=== PATIENT | male | born 1945 | race Caucasian/White ===

== ENCOUNTER 2021-01-25 08:04 | Observation (INO) | payer OTHER, MEDICARE ==
[~2021-01-25] VITALS: Ht 172.7 cm; Wt 68.0 kg
--- NOTE | ~2021-01-25 | O ---
[facility] [place] [address] OPERATIVE REPORT Name: ARUN JOHNSON Room #: 440-P [facility] M.R.#: [id number] Admission: 01/25/21 Attend Phys: Carrington Watkins MD Discharge: Date of : 41 Report #: [id number] THIS REPORT FOR: cc: Benitez Juarez MD, Gregory MD Williams, Carson MD ~ cc: Carlotta Stacy MD DATE OF SERVICE: 01/25/2021 PREOPERATIVE DIAGNOSES: 1. Squamous cell carcinoma, left external ear. 2. Left-sided otalgia. 3. Previous cancer of cutaneous malignancies. 4. 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 POSTOPERATIVE DIAGNOSES: 1. Squamous cell carcinoma, left external ear. 2. Left-sided otalgia. 3. Previous cancer of cutaneous malignancies. 4. 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 PROCEDURES PERFORMED: 1. Excision malignant skin lesion more than 4 cm. 2. Left ear canal meatoplasty. 3. Adjacent tissue transfer ear more than 30 square cm. 4. Intermediate wound closure, 20 cm in length. 5. Left facial sentinel lymph node biopsy with gamma probe detection. PRIMARY SURGEON: Carrington Watkins MD ANESTHESIA: General. COMPLICATIONS: None. ESTIMATED BLOOD LOSS: 25 mL SPECIMENS: 1. Left ear lesion for permanent. 2. Preauricular superior margin for frozen. 3. Preauricular inferior margin for frozen. 4. Auricular superior margin for frozen. 5. Auricular inferior margin for frozen. 6. Left facial sentinel lymph node. DRAINS: Left neck drain. [facility] [address] [place] [address] OPERATIVE REPORT Name: ARUN JOHNSON Room #: 440-P [facility] M.R.#: [id number] Admission: 01/25/21 Attend Phys: Carrington Watkins MD Discharge: Date of : 41 Report #: [id number] COMPLICATIONS: None. INDICATIONS FOR PROCEDURE: The patient is a 75-year-old male with a long history of cutaneous malignancy secondary to chronic immunosuppression and UV exposure over his life, who was sent to me by Dr. Carlotta Stacy for a left tragal and preauricular ulcerative skin lesion that was diagnosed as squamous cell carcinoma by his primary log loader helper. He was sent to me given the size and location of this lesion and for formal excision and reconstruction. The patient was preoperatively worked up and agreed to the above-named procedures after signing consent in the office. DESCRIPTION OF PROCEDURE: The patient was identified in the preoperative area before being transferred to the operating room and placed supine on the operating table. At this point, general endotracheal anesthesia was induced and a timeout was called to ensure the patient's identity and procedure to be performed. Once all were in agreement, the left ear was marked and locally injected with 1% lidocaine and 1:100,000 epinephrine solution along with the entire left side of his neck and pre and postauricular skin. Additionally, the gamma probe was used to identify the likely location of the left facial sentinel lymph node and this was marked cutaneously. Once this was all performed, the patient was prepped and draped in the normal sterile fashion. Starting first, the left ear lesion was sharply excised around its periphery leaving an approximate 10 mm margin around the periphery of the lesion. This was sharply divided using a #15 blade scalpel, which included resection of the entire tragus and the lateralmost aspect of the external auditory canal and the medial aspect of the conchal bowl. This was marked with marking stitches and placed on the back table for permanent specimen. The approximate diameter was 4.5 x 4.5 cm. Hemostasis was then achieved using bipolar cautery. Next, I elected to take a number of peripheral margins. These were sharply excised and marked with the marking pen around their perimeter and these were sent off for frozen section analysis by the pathologist. While this was being evaluated, I elected to move forward with the sentinel lymph node biopsy. This was in an area just inferior and anterior to the bottom part of the excision area. A skin flap was raised in a facelift fashion and down into a cervicofacial flap with a #15 blade and then raised in the subcutaneous plane. Using the gamma probe detector the likely location continued to be isolated and sharp dissection with a tenotomy scissor and #15 blade revealed the sentinel node to be a perifacial node in the general vicinity of where the cutaneous marking was. This was sharply excised and placed on the back table and again confirmed with the gamma probe with very high numbers. This was placed in a specimen container to send off for a permanent specimen. At this time, continued elevation of a very large cervicofacial skin flap in the [address] [address] OPERATIVE REPORT Name: ARUN JOHNSON Room #: 440-P [facility] M.R.#: [id number] Admission: 01/25/21 Attend Phys: Carrington Watkins MD Discharge: Date of : 41 Report #: [id number] subcutaneous plane was performed and hemostasis was achieved with bipolar cautery. By this time, the pathologist had returned and indicated that all margins were clear other than the auricular superior margin, which had a very close margin of keratin pearls present. Therefore, I elected to remove an additional approximate 2 mm margin and passed this off for permanent specimen. At this time, I began closing the defect. The cervicofacial flap was advanced and rotated into position to cover the preauricular and auricular defect. This was sutured down in layers using a combination of 4-0 Monocryl stitches in the deep dermal layer and 5-0 nylon on the skin. Of note, this covered the external auditory canal completely and I will dictate that repair in a moment. The cervical portion of the incision also was closed in layers after placing a 15-Cambodian Elton drain and bringing it out behind the left ear. Once this was all closed, the drain was holding suction well. I elected to move on to reconstructing the patient's ear canal. A stab incision was made into the aforementioned skin flap and an external canal meatoplasty was performed by subcutaneous resection of tissue and widening of the external aspect of the external auditory canal and then suturing the perforated skin flap down to the lateralmost aspect of the external auditory canal skin and closing this with 4-0 chromic sutures. This resulted in a very good aperture of the external auditory canal. The canal was then evacuated with a Garcia tip suction and a Merocel nasal pack was inserted into the canal coated with Polysporin ointment and saturated with sterile saline to act as a temporary stent. At this time, all reconstruction was complete. The patient tolerated the procedure well. All instrument, sponge and needle counts were correct x 2. He was reversed from anesthesia and transported to PACU in stable condition. DISPOSITION: The patient will be kept as an observation status overnight, given his multiple medical comorbidities. He will undergo routine wound care and drain care. He will expected to be discharged the morning after surgery. He has been given prescriptions for pain medication, antibiotics to be taken as directed. He has been given instructions on wound care. He will follow up with me in the first part of next week for a drain pull visit and further suture removal and pathology review will occur at his first official postoperative visit. By: [phone] Carrington Watkins MD /nt
[~2021-01-25 08:04] MED LIST: ASTAGRAF XL0.5 MG PO; BETAPACE120 MG PO; CALCIUM CITRAT200 MG PO; ELIQUIS5 MG PO; LIPITOR40 MG PO; LOSARTAN POTASS50 MG PO; MAG-OXIDE400 MG PO; METFORMIN HCL500 MG PO; MULTI VITAMIN1 EACH PO; OMEPRAZOLE40 MG PO; PREDNISONE 10 M10 MG PO; SIROLIMUS1 MG PO; VITAMIN D210 MCG PO
[2021-01-25 08:58] VITALS: BP 186/74
[2021-01-25 11:41] LABS: HEMATOCRIT 31.6 % (42.0-52.0); HEMOGLOBIN 10.7 gm/dL (14.0-18.0); MCH 32.5 pg (26.0-34.0); MCHC 33.8 g/dL (28.0-37.0); MCV 96.1 fL (80.0-100.0); RBC 3.29 mil/uL (4.50-6.00); RDW 13.9 % (10.5-14.5); WBC 3.3 thou/uL (4.0-11.0)
[2021-01-25 11:52] LABS: CALCIUM 7.8 mg/dL (8.5-10.1); POTASSIUM 4.2 mmol/L (3.5-5.1)
[2021-01-25 16:43] VITALS: BP 151/73
[2021-01-25 19:18] VITALS: BP 159/120
--- NOTE | 2021-01-25 23:30 | NUR ---
PT WAS LYING ON HIS BED WITH HIS EYES CLOSED AT SHIFT CHANGE.PT DENIED PAIN/N/.BOX LUNCH PROVIDED TO PT PER HIS REQUEST,CHAPO WELL.SUTURES TO HIS L EAR INTACT.MIN SEROUS SANGUINEOUS DRAINAGE NOTED IN ANIVAL DRAIN.PT STILL ON 2L/NC.PT ABLE TO MAKE HIS NEEDS KNOWN.CALL LIGHT WITHIN REACH.
[2021-01-26 03:53] VITALS: BP 139/72
[2021-01-26 08:24] VITALS: BP 145/73
--- NOTE | 2021-01-26 09:16 | NUR ---
Assumed care of pt at 0700. Pt a&ox4. Denies pain. Surgical incision well-approximated. J.P. drain in place. Called 's office and stated pt will discharge with drain in place. Pt will discharge to home. Call light within reach. Will continue to monitor.
[2021-01-26 09:47] VITALS: BP 145/73
--- NOTE | 2021-01-26 16:46 | NUR ---
Visited with the pt and his son at bedside. Dc home today anticipated with drain in place. Followup in the surgeons office early next week. Family asking about HH. Pt has been on services with [facility] in the past and he lives alone. Pt notes he does not intend to be home bound and would want daily RN visits. HH criteria reviewed. Family members to try and visit daily to look at his ear and change gauze dressing with vasoline daily.Encouragement given to call the surgeons office or pcp as needed. HH referral not indicated at this time. Pt reports he is indep with gait and adl's and drives.
--- NOTE | 2021-01-26 17:07 | PATH ---
[facility] Cecelia [place] [address] PATHOLOGY RPT PROCEDURE Name: KODY JOHNSON Room #: 440-P [facility] Lan M.RIke#: [id number] Admission: 01/25/21 Date of : 41 Discharge: 01/26/21 Report #: [id number] Path Case #: [id number] [facility] Accession Number: [id number] . 01 Material submitted: . PART A: ear - PREAURICULAR SUPERIOR MARGIN INKED-FS. Modifiers: PREAURICULAR, superior PART B: ear - PREAURICULAR INFERIOR MARGIN INKED-FS. Modifiers: PREAURICULAR, inferior PART C: ear - AURICULAR INFERIOR MARGIN INKED-FS. Modifiers: inferior PART D: ear - AURICULAR SUPERIOR MARGIN INKED-FS. Modifiers: superior PART E: ear - LEFT EAR LESION. Modifiers: left PART F: lymph node - LEFT SENTINEL NODE. Modifiers: left, EAR PART G: ear - ADDITIONAL AURICULAR SUPERIOR-LEFT. Modifiers: superior, left . 01 Clinical history: . EXCISION SQUAMOUS CELL CARCINOMA MEATOPLASTY SQUAMOUS CELL CARCINOMA EAR, HISTORY OF SQUAMOUS CELL CARCINOMA OF... SKIN, BASAL CELL CARCINOMA (BCC) OF... SQUAMOUS CELL CARCINOMA LEFT EAR DS 01/25/EXCISION SQUAMOUS CELL CARCINOMA/ XRAY CHEST E: DOUBLE SHORT STITCH IS INFERIOR, DOUBLE LONG STITCH-SUPERIOR, SINGLE LONG IS ANTERIOR (SEE REQ) . 02 Frozen section diagnosis: . INTRAOPERATIVE CONSULTATION WITH FROZEN SECTION: (Dr. Gertrude Bright) . FSA1. Preauricular superior margin, biopsy: - Negative for invasive carcinoma on frozen section slide. . FSB1. Preauricular inferior margin, biopsy: - Negative for invasive carcinoma on frozen section slide. . FSC1. Auricular inferior margin, biopsy: - Negative for invasive carcinoma on frozen section slide. . FSD1. Auricular superior margin, biopsy: - Keratin pearls suspicious for invasive carcinoma of deep margin. . These findings are discussed with Dr. Watkins in OR1 at [facility] and a written report is placed in the patient's chart. (IUV:mml; 01/25/2021) . . FROZEN SECTION GROSS DESCRIPTION: A. Received fresh from the AR, labeled, "Kody Johnson - Preauricular superior margin inked" is a thin strip of skin measuring approximately 3.[address] [address] PATHOLOGY RPT PROCEDURE Name: KODY JOHNSON Room #: [address] [place] [address]#: [id number] Admission: 01/25/21 Date of : 41 Discharge: 01/26/21 Report #: [id number] Path Case #: [id number] x 0.5 x 0.5 cm. Specimen is sectioned and submitted in its entirety for frozen section en face labeled FSA1, this is subsequently submitted for permanent sections as A1. . B. Received fresh from the OR, labeled, "Kody Johnson - Preauricular inferior margin inked" is approximately a 4.0 x 0.3 x 0.3 cm specimen. The specimen is sectioned and submitted en face for frozen section as FSB1, subsequently submitted for permanent sections as B1. . C. Received fresh from the OR, labeled, "Wing Kody - Auricular inferior margin inked" is a 3.5 x 0.3 x 0.3 cm strip of skin. The specimen is sectioned and submitted en face for frozen section as FSC1, subsequently submitted for permanent sections as C1. . D. Received fresh from the OR, labeled, "Wing, Kody - Auricular superior margin inked" is a thin strip of skin measuring approximately 4.0 x 0.3 x 0.2 cm. Specimen is sectioned and submitted en face for frozen section as FSD1, subsequently submitted for permanent sections as D1. (IUV:mml; 01/25/2021) . . Frozen section performed at [facility], [address] [place], [place] [address]cle[address], [place] [address]. IZV/QLM . 02 Diagnosis: A. Skin, preauricular superior margin, biopsy: - POSITIVE FOR MALIGNANCY; WELL-DIFFERENTIATED KERATIN ISLANDS AND PERINEURAL INVASION IDENTIFIED. . B. Skin, preauricular inferior margin, biopsy: - POSITIVE FOR MALIGNANCY; WELL-DIFFERENTIATED KERATIN ISLANDS AND PERINEURAL INVASION IDENTIFIED. . C. Skin, auricular inferior margin, biopsy: - POSITIVE FOR MALIGNANCY; WELL-DIFFERENTIATED KERATIN ISLANDS AND PERINEURAL INVASION IDENTIFIED. . D. Skin, auricular superior margin, biopsy: - POSITIVE FOR MALIGNANCY; WELL-DIFFERENTIATED KERATIN ISLANDS AND PERINEURAL INVASION IDENTIFIED. . E. Skin, left ear lesion, excision: - INVASIVE, MODERATELY DIFFERENTIATED SQUAMOUS CELL CARCINOMA WITH EXTENSIVE KERATINIZATION. - EXTENSIVE PERINEURAL INVASION IDENTIFIED. - Negative for invasion into underlying cartilage. [facility] [place] [address] PATHOLOGY RPT PROCEDURE Name: KODY JOHNSON Room #: [facility]#: [id number] Admission: 01/25/21 Date of : 41 Discharge: 01/26/21 Report #: [id number] Path Case #: [id number] - DEEP MARGIN WIDELY POSITIVE FOR MALIGNANCY (PLEASE SEE COMMENT). . F. Tissue designated as "left sentinel node", biopsy: - Fibroadipose connective tissue. - No lymphoid tissue present. . G. Skin, additional auricular superior-left, biopsy: - POSITIVE FOR MALIGNANCY; WELL-DIFFERENTIATED KERATIN ISLANDS AND PERINEURAL INVASION IDENTIFIED. (IUV:pit; 01/26/2021) QTP 01/26/2021 1514 Local . 02 Comment: Examination shows predominantly a well-differentiated squamous cell carcinoma with abundant keratinization. The invasive component is poorly differentiated; therefore, the tumor is graded as a moderately differentiated invasive squamous cell carcinoma. There is extensive perineural invasion present and is identified widely at all the margins sections in addition to the "left ear lesion" tissue examined. The cartilage identified within the sample is not involved by invasive carcinoma. The tumor is identified at all margins sampled. . The well-differentiated keratin pearls resembled hair follicles and were therefore misinterpreted at the time of the frozen section. . Findings of this case are discussed with Dr. Carrington Watkins at approximately 2:45 pm on 01/26/2021. (IUV:pit; 01/26/2021) . 02 Electronically signed: . Gerturde U Vadlamani, MD, Pathologist NPI- [id number] . 01 Gross description: . A, B, C, D. PLEASE SEE FROZEN SECTION GROSS DESCRIPTION . E. The specimen is received in formalin, labeled "Kody Johnson, left ear lesion -double short stitch is inferior, double long stitch-superior, single long is anterior". It consists of an oriented, focally cartilaginous, skin and soft tissue resection measuring 4.0 cm from superior to inferior, 4.0 cm from anterior to posterior, and excised to a depth of 1.1 cm. The specimen is oriented as follows: Double short stitch: Inferior; double long stitch: Superior; single long stitch: Anterior. Identified on the epidermal surface is a le, centrally ulcerated and erythematous, flat lesion measuring 2.3 x 1.5 cm. The lesion measures 0.5 cm from superior, 1.2 cm from inferior, 1.0 cm from anterior, 1.5 cm from posterior, 0.5 from deep. [place] [address] PATHOLOGY RPT PROCEDURE Name: KODY JOHNSON Room #: 440-P [facility] M.R.#: [id number] Admission: 01/25/21 Date of : 41 Discharge: 01/26/21 Report #: [id number] Path Case #: [id number] the lesion is an irregular, canal-like defect measuring 1.3 x 0.9 cm. The remaining epidermal surface appears le, wrinkled and hairbearing. The specimen is inked as follows: Superior: Blue; inferior: Green; anterior: Yellow; posterior: Gem; deep: Black; deep rim surrounding canal-like defect: Red. A gross photograph is taken. The specimen is radially sectioned in relationship to the canal-like defect and entirely submitted as follows: E1-E2: Superior margin E3-E5: Anterior margin E6-E9: Inferior margin E10-E11: Posterior margin . F. The specimen is received in formalin, labeled "Kody Johnson, left sentinel node". It consists of 2 le-yellow, irregular fatty soft tissue segments measuring 1.4 and 2.8 cm. The specimen is entirely submitted in F1. . G. The specimen is received in formalin, labeled "Kody Johnson, additional auricular superior-left". It consists of an unoriented, irregular skin fragment measuring 6.5 x 0.5 x 0.2 cm. The epidermal surface appears le. The resection surface is inked black and the specimen is serially sectioned. The specimen is entirely submitted in G1-G3. (MRF; 01/25/2021) MFE/MFE 01/26/[address] [place] [address] . Pathologist provided ICD-10: C44.201, C44.229 . 02 CPT . 154145, 368975, 662748, 997220, 407865, 880798, 794586, 755387, 091193, [id number], [id number] Specimen Comment: A courtesy copy of this report has been sent to [phone], [phone] Specimen Comment: 1991 Specimen Comment: Report sent to / DR CUMMINS Performed at: [address], [place] [id number] MD Umair Camp MD Phone: [phone] Performed at: [address] [id number] MD Gertrude Bright MD Phone: [phone]
== END 2021-01-26 10:19 | disposition home or self-care (01) ==
LOC: OR 08:04 → 4S 16:29
PROVIDERS: ADMIT Otolaryngology; ATTEND Otolaryngology
DX: C44.229 Squamous cell carcinoma of skin of left ear and external auricular canal (principal); Z20.822 Contact with and (suspected) exposure to COVID-19; Z79.899 Other long term (current) drug therapy
CPT/HCPCS: 50010; 50101; 50331; 50386; 50398; 50455; 51412; 52220; 52225; 56524; 56526; 56527; 56528; 56845; 57006; 58904; 62110; 62900; 65131; 70005